=== PATIENT | male | born 1990 | race Caucasian/White ===

== ENCOUNTER 2019-03-05 11:53 | Emergency (ER) | payer BC, OTHER ==
[~2019-03-05] VITALS: Ht 180.3 cm; Wt 99.5 kg
[2019-03-05 11:59] VITALS: Ht 180.3 cm; Wt 99.5 kg
[2019-03-05] MEDS ORDERED: IBUPROFEN 800 MG TAB PO ONE (12:30)
[2019-03-05] MEDS ORDERED: IBUP800T48 PO (13:15)
--- NOTE | 2019-03-05 13:16 | ERD ---
ER Documentation Chief Complaint Chief Complaint LEFT ANKLE PAIN S/P FELL ON STAIRS YESTERDAY; CMS INTACT; + SWELLING HPI 28 year old male presents to ED complaining of left ankle pain s/p fall yesterday. He reports he was going down stair and tripped and twisted his left ankle. He came to the ED today in crutches he had at home. He reports that he has previously sprained the ankle in the past. Today, he reports 10/10 constant intensity pain that is sharp and aching in character. He has not taking any medications for the pain. He states he cant walk on it due to pain. He states it feels better when resting. He denies past med hx. ROS All systems reviewed and are negative except as per history of present illness. Medications Home Meds Active Scripts Ibuprofen* (Motrin*) 800 Mg Tab, 800 MG PO Q6H PRN for PAIN AND OR ELEVATED TEMP, #30 TAB Prov:CANDACE AL PA-C 03/05/19 Allergies Allergies: Coded Allergies: amoxicillin (Verified Allergy, Unknown, hives, 03/05/19) PMhx/Soc Medical and Surgical Hx: pt denies Medical Hx, pt denies Surgical Hx Hx Alcohol Use: No Hx Substance Use: No Hx Tobacco Use: No Smoking Status: Never smoker FmHx Family History: No diabetes Physical Exam Vitals Vital Signs Date Temp Pulse Resp B/P (MAP) Pulse Ox O2 O2 Flow FiO2 Time Delivery Rate 03/05/19 98.5 88 18 145/78 99 Room Air 13:45 (100) 03/05/19 97.9 105 18 157/82 98 11:59 (107) Physical Exam Const: No acute distress Head: Atraumatic Eyes: Normal Conjunctiva ENT: Normal External Ears, Nose and Mouth. Neck: Full range of motion. No meningismus. Resp: Clear to auscultation bilaterally Cardio: Regular rate and rhythm, no murmurs Abd: Soft, non tender, non distended. Normal bowel sounds Skin: No petechiae or rashes Back: No midline or flank tenderness Ext: Left ankle/foot: swollen, no open fractures, bleeding, or bruises. Tenderness to the lateral aspect of the ankle. good 2+ pulses, limited ROM secondary to pain Neur: Awake and alert Psych: Normal Mood and Affect Results 24 hrs Current Medications Medications Dose Sig/Cb Start Time Status Last (Trade) Ordered Route PRN Stop Time Admin Dose Reason Admin Ibuprofen 800 mg ONCE ONCE 03/05/19 DC 03/05/19 (Motrin) PO 12:30 03/05/19 12:25 12:31 Procedures/MDM ED COURSE: The patient was stable throughout ED course. I kept the patient informed of laboratory and diagnostic imaging results throughout the ED course. DIAGNOSTIC IMAGING: Read by radiologist. PROCEDURE: XR Left Foot CLINICAL INDICATION: Status post fall TECHNIQUE: AP, oblique, and lateral radiographs were submitted. COMPARISON: None FINDINGS: Osseous structures: appear well mineralized and intact with no fracture or destructive process identified. Joint spaces: are well maintained, with no significant spurring, erosion or joint effusion evident. Soft tissues: appear unremarkable. IMPRESSION: Unremarkable left foot. Physician Jillian Date Time Electronically viewed and signed by Physician Jillian on 03/05/2019 13:00 PROCEDURE: XR Left Ankle CLINICAL INDICATION: Status post fall TECHNIQUE: Standard 3 view radiographs were submitted. COMPARISON: None FINDINGS: Osseous structures: Well mineralized and intact with no fracture or destructive process identified. Joint spaces: Well maintained with no significant erosions or spurring evident. Soft tissues: There is soft tissue swelling about the lateral malleolus suspicious for a sprain. IMPRESSION: Left ankle sprain. Physician Jillian Date Time Electronically viewed and signed by Physician Jillian on 03/05/2019 12:59 PROCEDURES: none MEDICATIONS GIVEN: Motrin Patient tolerated medication well with no adverse reactions. Patient reported improvement in pain. MEDICAL DECISION MAKING: Patient is a 28 year old male presenting with left ankle pain s/p tripping down stairs yesterday. Pt states he cannot walk on the left foot and came to the ED with crutches. On physical exam, Pt has edema and tenderness to the lateral aspect of the left foot. X ray images of the foot and ankle were unremarkable for any bony abnormalities but the radiologist diagnosed him with a left ankle sprain. Pt was placed in a brace and prescribed Motrin. Pt was told to ice the leg and keep it elevated. He was told to follow up with PCP and ortho in the next 1-2 days. I have low suspicion for a fracture, septic joint, osteomyelitis, or gout. Vital signs were reviewed. Patient is afebrile. Patient was not hypoxic. Patient was hemodynamically stable. Patient was told to follow up with primary care for further care and management. PRESCRIPTION: Motrin DISCHARGE: At this time, patient is stable for discharge and outpatient management. I have instructed the patient to follow-up with his/her primary care physician in 1-2 days. I have discussed with the patient the possibility of needing to see a specialist for further workup and imaging studies if symptoms persist. I have instructed the patient to promptly return to the ER for any new or worsening symptoms including increased pain, fever, nausea, vomiting, weakness or LOC. The patient expressed understanding of and agreement with this plan. All questions were answered. Home care instructions were provided. Disclaimer: Inadvertent spelling and grammatical errors are likely due to EHR/dictation software use and do not reflect on the overall quality of patient care. Also, please note that the electronic time recorded on this note does not necessarily reflect the actual time of the patient encounter. Departure Diagnosis: Primary Impression: Ankle sprain Encounter type: initial encounter Involved ligament of ankle: unspecified ligament Laterality: unspecified laterality Qualified Codes: S93.409A - Sprain of unspecified ligament of unspecified ankle, initial encounter Condition: Fair Patient Instructions: Treating Ankle Sprains Referrals: [facility] YOU HAVE RECEIVED A MEDICAL SCREENING EXAM AND THE RESULTS INDICATE THAT YOU DO NOT HAVE A CONDITION THAT REQUIRES URGENT TREATMENT IN THE EMERGENCY DEPARTMENT. FURTHER EVALUATION AND TREATMENT OF YOUR CONDITION CAN WAIT UNTIL YOU ARE SEEN IN YOUR DOCTORS OFFICE WITHIN THE NEXT 1-2 DAYS. IT IS YOUR RESPONSIBILITY TO MAKE AN APPOINTMENT FOR FOLOW-UP CARE. IF YOU HAVE A PRIMARY DOCTOR --you should call your primary doctor and schedule an appointment IF YOU DO NOT HAVE A PRIMARY DOCTOR YOU CAN CALL OUR PHYSICIAN REFERRAL HOTLINE AT IF YOU CAN NOT AFFORD TO SEE A PHYSICIAN YOU CAN CHOSE FROM THE FOLLOWING [facility] [address] [facility]. [facility] [address] [facility] [facility] [address] [facility] [address] [facility] [address] [facility]. [address] [facility] [facility] YOU HAVE RECEIVED A MEDICAL SCREENING EXAM AND THE RESULTS INDICATE THAT YOU DO NOT HAVE A CONDITION THAT REQUIRES URGENT TREATMENT IN THE EMERGENCY DEPARTMENT. FURTHER EVALUATION AND TREATMENT OF YOUR CONDITION CAN WAIT UNTIL YOU ARE SEEN IN YOUR DOCTORS OFFICE WITHIN THE NEXT 1-2 DAYS. IT IS YOUR RESPONSIBILITY TO MAKE AN APPOINTMENT FOR FOLOW-UP CARE. IF YOU HAVE A PRIMARY DOCTOR --you should call your primary doctor and schedule and appointment IF YOU DO NOT HAVE A PRIMARY DOCTOR YOU CAN CALL OUR PHYSICIAN REFERRAL HOTLINE AT . IF YOU CAN NOT AFFORD TO SEE A PHYSICIAN YOU CAN CHOSE FROM THE FOLLOWING [facility] INSTITUTIONS: [facility] [address] [place] [address] [facility] [address] [place] [address] [facility] [address] [place] [address] Additional Instructions: Call your primary care doctor TOMORROW for an appointment during the next 1-2 days.See the doctor sooner or return here if your condition worsens before your appointment time. CANDACE AL PA-C Mar 05, 2019 13:16
[2019-03-05 13:45] VITALS: BP 145/78; PULSE 88; RESP 18
== END 2019-03-05 13:45 | disposition home or self-care (01) ==
LOC: FTE 11:53
DX: S93.402A Sprain of unspecified ligament of left ankle, initial encounter (principal); X50.1XXA Overexertion from prolonged static or awkward postures, initial encounter; Y92.9 Unspecified place or not applicable
CPT/HCPCS: 73610